=== PATIENT | male | born 1985 | race Caucasian/White ===

== ENCOUNTER 2017-04-09 13:21 | Emergency (ER) | payer BC ==
[~2017-04-09] VITALS: Ht 195.6 cm; Wt 75.4 kg
[~2017-04-09 13:21] MED LIST: SULF1TAB41 PO
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
--- OUTSIDE RECORDS SUMMARY | 2017-04-09 13:27 | XMS REPORT | Continuity of Care Document ---
Author Author [facility] Organization [facility] Address Unknown Phone Unavailable Support Name Relationship Address Phone KYA MARTIN Caregiver [address] [place] [address] Unavailable JOSSELYN GOMEZ DO Caregiver [address] [place] [address] Unavailable CRIS LEDESMA Next Of Kin [place], [place] [phone] Insurance Providers Guarantor Yuriy Bee Address [address] [place] [address] Email DENIED 01-29-17 Payer [facility] Policy Number [id number] Subscriber's Name Yuriy Bee Relationship 18 Self Group Number [id number] Chief Complaint and Reason for Visit Chief Complaint Skin Rash/Abscess Reason for Visit Abscess [id number] Problems Active Problems Medical Problem Onset Date Status Cellulitis of hand, left Unknown Acute Cellulitis of hand, left Unknown Acute Chest pain Unknown Acute Fall Unknown Acute Intercostal muscle pain Unknown Acute Sacral contusion Unknown Acute Seizure Unknown Acute Sinusitis Unknown Acute Past Problems Medical Problem Onset Date Abscess Unknown Cellulitis of groin, right Unknown Seizures, generalized convulsive Unknown Medications Current Home Medications Medication Dose Units Route Directions Days Qty Instructions Start Date Sulfamethoxazole/Trimethoprim (Bactrim 400-80 Mg Tablet) Unknown Strength Tablet Unknown Dose Oral Twice A Day 01/29/17 Past Home Medications Medication Directions Ordered Status No Medications , 08/27/14 Discontinued Social History Social History Problem Response Recorded Date/Time Onset Date Status Hx Substance Use No 01/29/2017 7:50pm Not Applicable Not Applicable Hx Alcohol Use Yes 01/29/2017 7:50pm Not Applicable Not Applicable Tobacco Usage smoke 08/27/2014 10:12pm Not Applicable Not Applicable Query Response Start Date Stop Date Smoking Status Never smoker Hospital Discharge Instructions No hospital discharge instructions. Plan of Care Discharge Date 01/29/17 7:52pm Disposition 01 DISCHARGED HOME, SELF-CARE Condition at Discharge Stable Instructions/Education Provided Abscess (ED) Prescriptions See Medication Section Referrals KYA MARTIN Order Date: 1 Week Address: [address] [facility] [place] [address] Note: Additional Instructions/Education You have a drained/draining abscess in your right groin. We did not need to open it to drain it tonight. Since you still have signs of a skin infection 6 days after taking the previously prescribed bactrim, we will change you to a different antibiotic today. You MUST finish all of the antibiotic to heal your infection and prevent a much worse infection. Follow up with your doctor in the next week to ensure that things are getting better. Care Plan and Goals Physician Care Plan Problem: Draining abscess Goal: Follow up with primary care provider Instructions: Take medications and follow care plan as discussed/written Functional Status No functional status results. Allergies, Adverse Reactions, Alerts No known allergies. Immunizations Query Response on File Recorded Date/Time Hx Influenza Vaccination No 07/07/15 12:10am Hx Pneumococcal Vaccination No 07/07/15 12:10am Hx Influenza Vaccination No 07/07/15 12:10am Vital Signs Acute Vital Signs Vital Response Date/Time Temperature (Fahrenheit) 98.7 deg F (96.8 - 99.1) 01/29/2017 7:52pm Temperature (Calculated Celsius) 37.77970 degrees C (36.0 - 37.3) 01/29/2017 7:52pm Pulse Rate (adult) 75 bpm (60 - 100) 01/29/2017 7:52pm Respiratory Rate 17 breaths/min (10 - 20) 01/29/2017 7:52pm O2 Sat by Pulse Oximetry 96 % (90 - 100) 01/29/2017 7:52pm Blood Pressure 121/72 mm Hg 01/29/2017 7:52pm Height (Feet) 6 feet 01/29/2017 7:15pm Height (Inches) 4.00 inches 01/29/2017 7:15pm Weight (Kilograms) 75.400 kg 01/29/2017 7:15pm Body Mass Index (BMI) 20.0 01/29/2017 7:15pm Results No known relevant diagnostic tests, laboratory data and/or discharge summary. Procedures No known history of procedures. Encounters Encounter Location Arrival/Admit Date Discharge/Depart Date Attending Provider Departed Emergency Room [facility] 01/29/17 6:50pm 01/29/17 7: 52pm JOSSELYN GOMEZ DO Recent Diagnosis
--- OUTSIDE RECORDS SUMMARY | 2017-04-09 13:28 | XMS REPORT ---
Author Author [facility] Address Unknown Phone Unavailable Care Team Providers Care Motor Vehicle Emissions Inspector Name Role Phone Dr. ARNOL DUCKWORTH Primary Care Physician Unavailable Allergies Allergy Description Allergy Type CODEINE Drug allergy (disorder) Procedures Procedure Type Procedure Description Date Physicians No codified procedures found for this patient. Results No Procedures Performed Observation Test Name Observation Test Result Observation Test Units Observation Test Date Observation Test Time No result observations. History of Immunizations Immunization Date no immunization entries Plan of Care Item Text No plan of care items. Procedure Date/Time/Initials Critical? Status No plan of care procedures. Medication List Medication Dose Units Frequency Start Date/Time Status none Problem List Problem Entered Date Resolved Date CONVULSIONS 04/27/2013 04/22/2013
--- OUTSIDE RECORDS SUMMARY | 2017-04-09 13:28 | XMS REPORT ---
Author Author [facility] Address Unknown Phone Unavailable Care Team Providers Care Manager Wind Name Role Phone Dr. ARNOL DUCKWORTH Primary [...] Problem List Problem Entered Date Resolved Date No known problems
--- OUTSIDE RECORDS SUMMARY | 2017-04-09 13:28 | XMS REPORT ---
Author Author [facility]ONE J[facility] Address Unknown Phone Unavailable Care Team Providers Care Printmaker Name Role Phone Dr. JAMAR VELAZQUEZ Primary Care Physician Unavailable Allergies Allergy Description [...] List Medication Dose Units Frequency Start Date/Time Stop Date/Time Status NS 0.9% 1000 ML CONT IV 04/22/13 00:44 Active ~~ NS 0.9% 1000 ML 1000 ML LORAZEPAM(ATIVAN) 2 MG/1ML VIAL 0.5 MG PRN Q30MIN 04/22/13 00:45 05/02/13 00:45 Active SALINE FLUSH 5 ML SYRINGE 3 ML PRN 04/22/13 07:08 Active SERTRALINE(ZOLOFT) 50 MG TAB 50 MG DAILY 04/22/13 10:19 Active Problem List Problem Entered Date Resolved Date CONVULSIONS 04/27/2013 04/22/2013
--- OUTSIDE RECORDS SUMMARY | 2017-04-09 13:28 | XMS REPORT | Continuity of Care Document ---
Author Author [facility] Organization [facility] Address Unknown Phone Unavailable Support Name Relationship Address Phone DARNELL BARRON MD Caregiver [address] [place] [address] [place] [phone] KALEY BEE Next Of Kin [address] [place] [address] Insurance Providers Payer Name Policy Number Subscriber Name Relationship [facility] [id number] Magdaleno Bee 20 Self Problems Medical Problems Problem Onset Date Status Cellulitis of hand, left Unknown Active Cellulitis of hand, left Unknown Active Medications Medication Dose Route Sig Days/Qty Instructions Order Date Discontinued Date Status [no medications] 08/27/14 Active Sulfamethoxazole/Trimethoprim 1 Tab PO TWICE A DAY 14 Qty 08/27/14 Active Social History Social History Problem Response Recorded Date/Time Hx Substance Use No 08/27/2014 10:07pm Hx Alcohol Use No 08/27/2014 10:07pm Tobacco Usage smoke 08/27/2014 10:12pm Hospital Discharge Instructions No hospital discharge instructions. Plan of Care No plan of care. Functional Status Query Response Date Recorded Physical Hygiene Self August 27, 2014 10:07pm Physical Hygiene Self August 27, 2014 10:07pm Allergies, Adverse Reactions, Alerts Allergen Type Severity Reaction Status Last Updated No Known Allergies Active 08/27/14 Immunizations Name Given Type Hx Influenza Vaccination No Historical Hx Pneumococcal Vaccination No Historical Hx Influenza Vaccination No Historical Vital Signs No known vital signs results. Results No known relevant diagnostic tests, laboratory data and/or discharge summary. Procedures No known history of procedures. Encounters Encounter Location Date/Time Departed Emergency Room [facility] 12/05/14 7:40pm Recent Diagnosis
--- OUTSIDE RECORDS SUMMARY | 2017-04-09 13:28 | XMS REPORT | Continuity of Care Document ---
Author Author [facility] Organization [facility] Address Unknown Phone Unavailable Support Name Relationship Address Phone VERONICAKYA NUNES Carmelo Caregiver [address] [place] [address] DANIE SPENCE DO Caregiver [facility] [address] [place] [address] KALEY BEE Next Of Kin [address] [place] [address] Insurance Providers Payer Name Policy Number Subscriber Name Relationship [facility] [id number] Yuriy Bee 20 Self Advance Directives Directive Response Recorded Date/Time Advanced Directives Type None 12/28/14 10:15am Problems Medical Problems Problem Onset Date Status Cellulitis of hand, left Unknown Active Cellulitis of hand, left Unknown Active Seizure Unknown Active Sinusitis Unknown Active Medications Medication Dose Route Sig Days/Qty Instructions Order Date Discontinued Date Status [no medications] 08/27/14 Active Cephalexin 1 Cap PO THREE TIMES A DAY For sinusitis 10 Days 12/28/14 Active Social History Social History Problem Response Recorded Date/Time Hx Substance Use No 12/28/2014 10:15am Hx Alcohol Use No 12/28/2014 10:15am Tobacco Usage smoke 08/27/2014 10:12pm Query Response Start Date Stop Date Smoking Status Current every day smoker Hospital Discharge Instructions No hospital discharge instructions. Plan of Care No plan of care. Functional Status Query Response Date Recorded Physical Hygiene Self December 28, 2014 10:15am Disabilities None December 28, 2014 10:15am Devices Used None December 28, 2014 10:15am Dressing Self December 28, 2014 10:15am Ambulation Self December 28, 2014 10:15am Diet Self December 28, 2014 10:15am Mental Status Alert Oriented December 28, 2014 10:15am Disabilities None December 28, 2014 10:15am Devices Used None December 28, 2014 10:15am Physical Hygiene Self December 28, 2014 10:15am Dressing Self December 28, 2014 10:15am Ambulation Self December 28, 2014 10:15am Diet Self December 28, 2014 10:15am Allergies, Adverse Reactions, Alerts Allergen Type Severity Reaction Status Last Updated No Known Allergies Active 08/27/14 Immunizations Name Given Type Hx Influenza Vaccination No Historical Hx Pneumococcal Vaccination No Historical Hx Influenza Vaccination No Historical Vital Signs Acute Vital Signs Vital Response Date/Time Temperature (Fahrenheit) 98.2 deg F (96.8 - 99.1) Temperature (Calculated Celsius) 36.50411 degrees C (36.0 - 37.3) Pulse Rate (adult) 76 bpm (60 - 100) Respiratory Rate 18 breaths/min (10 - 20) O2 Sat by Pulse Oximetry 97 % (90 - 100) Blood Pressure 97/55 mm Hg Height 6 ft 5 in Weight 167 lb Body Mass Index 19.0 kg/m^2 Results Test Source Date Result Interp. Ref. Range Comments Acetaminophen Level December 28, 2014 10:00am < 10 UG/ML L 10-30 TOXIC <4 HR POST INGESTION: >150 MG/L;TOXIC <12 HR POST INGESTION: >50 MG/L Alanine Aminotransferase (ALT/SGPT) December 28, 2014 10:00am 28 U/L N 21-72 Albumin December 28, 2014 10:00am 4.3 G/DL N 3.5-5.0 Albumin/Globulin Ratio December 28, 2014 10:00am 1.4 RATIO N 1.1-2.2 Alcohol, Quantitative December 28, 2014 10:00am <10 MG/DL - Alkaline Phosphatase December 28, 2014 10:00am 109 U/L N 38-126 Anion Gap December 28, 2014 10:00am 12 MEQ/L N 5-15 Aspartate Amino Transf (AST/SGOT) December 28, 2014 10:00am 28 U/L N 17- 59 BUN/Creatinine Ratio December 28, 2014 10:00am 17 RATIO N 6-26 Basophils # (Auto) December 28, 2014 10:00am 0.0 T/MM3 N 0-0.2 Basophils (%) (Auto) December 28, 2014 10:00am 0.5 % N 0-2 Blood Urea Nitrogen December 28, 2014 10:00am 15.0 MG/DL N 9-20 Calcium Level December 28, 2014 10:00am 9.8 MG/DL N 8.4-10.2 Calculated Osmolality December 28, 2014 10:00am 278 MOSM/KG N 261-280 Carbon Dioxide Level December 28, 2014 10:00am 27 MEQ/L N 22-30 Chemistry Specimen Hemolysis December 28, 2014 10:00am < 15 0-25 0-25 : No Hemolysis.26-70: Slight Hemolysis - can falsely elevate K and Urine Protein. 71-285: Moderate Hemolysis - can falsely elevate K, Troponin I, CA 19-9, PTH, CSF GLucose, and Urine Protein, and can falsely decrease Phenytoin. 286-999: Gross Hemolysis - can falsely elevate K, Troponin I, CA 19-9, PTH, CSF Glucose, and Urine Protine, and can falsely decrease Phenytoin. Recommend specimen recollection. Chloride Level December 28, 2014 10:00am 105 MEQ/L N 98-107 Creatinine December 28, 2014 10:00am 0.9 MG/DL N 0.8-1.5 Eosinophils # (Auto) December 28, 2014 10:00am 0.2 T/MM3 N 0-0.5 Eosinophils (%) (Auto) December 28, 2014 10:00am 2.1 % N 0-4 Globulin December 28, 2014 10:00am 3.1 G/DL N 2.4-3.6 Glomerular Filtration Rate Calc December 28, 2014 10:00am 101 - Glucometer December 28, 2014 12:33pm 158 mg/dL H 75-110 Glucose Level December 28, 2014 10:00am 92 MG/DL N 75-110 Hematocrit December 28, 2014 10:00am 40.1 % L 41-53 Hemoglobin December 28, 2014 10:00am 13.6 GM/DL N 13.5-17.5 Icterus Index December 28, 2014 10:00am < 2 0-7 Immature Granulocyte # (Auto) December 28, 2014 10:00am 0.01 T/MM3 N 0.00-0.03 Immature Granulocyte % (Auto) December 28, 2014 10:00am 0.1 % N 0.0-0.5 Lab Scanned Report December 28, 2014 11:12am REFERENCE LAB - Lymphocytes # (Auto) December 28, 2014 10:00am 2.5 T/MM3 N 1-4.8 Lymphocytes (%) (Auto) December 28, 2014 10:00am 31.6 % N 23-45 Mean Corpuscular Hemoglobin December 28, 2014 10:00am 30.5 UUG N 26-34 Mean Corpuscular Hemoglobin Concent December 28, 2014 10:00am 33.9 GM/DL N 31-37 Mean Corpuscular Volume December 28, 2014 10:00am 89.9 UM3 N 80-100 Mean Platelet Volume December 28, 2014 10:00am 10.2 UM3 N 9.4-12.4 Monocytes # (Auto) December 28, 2014 10:00am 0.5 T/MM3 N 0-0.8 Monocytes (%) (Auto) December 28, 2014 10:00am 6.0 % N 0-9.0 Neutrophils # (Auto) December 28, 2014 10:00am 4.8 T/MM3 N 1.8-7.7 Neutrophils (%) (Auto) December 28, 2014 10:00am 59.7 % N 33-66 Platelet Count December 28, 2014 10:00am 293 T/MM3 N 130-400 Potassium Level December 28, 2014 10:00am 3.8 MEQ/L N 3.6-5 Prolactin December 28, 2014 10:00am 9.9 NG/ML - Normal Female (Non- ): 3.0-18.6 ng/ml;Males: 3.7-17.9 ng/ml RDW Standard Deviation December 28, 2014 10:00am 44.5 FL N 36.9-50.2 Red Blood Count December 28, 2014 10:00am 4.46 M/MM3 L 4.50-5.90 Salicylates Level December 28, 2014 10:00am < 1.0 MG/DL L 2-20 Sodium Level December 28, 2014 10:00am 144 MEQ/L N 134-144 Total Bilirubin December 28, 2014 10:00am 1.00 MG/DL N 0.20-1.30 Total Protein December 28, 2014 10:00am 7.4 G/DL N 6.3-8.2 Troponin I December 28, 2014 10:00am < 0.012 ng/ml 0-0.12 Turbidity December 28, 2014 10:00am < 20 0-20 Urinalysis Comment December 28, 2014 10:31am Microscopic not ind. - Has specimen been collected/obtained? Y Urine Bilirubin December 28, 2014 10:31am Negative - Has specimen been collected/obtained? Y Urine Blood December 28, 2014 10:31am Negative - Has specimen been collected/obtained? Y Urine Collection Type December 28, 2014 10:31am Cleancatch-midstream - Has specimen been collected/obtained? Y Urine Color December 28, 2014 10:31am Yellow - Has specimen been collected/obtained? Y Urine Glucose (UA) December 28, 2014 10:31am Negative - Has specimen been collected/obtained? Y Urine Ketones December 28, 2014 10:31am Negative - Has specimen been collected/obtained? Y Urine Leukocyte Esterase December 28, 2014 10:31am Negative - Has specimen been collected/obtained? Y Urine Nitrite December 28, 2014 10:31am Negative - Has specimen been collected/obtained? Y Urine Protein December 28, 2014 10:31am Negative - Has specimen been collected/obtained? Y Urine Specific [place] December 28, 2014 10:31am 1.025 - Has specimen been collected/obtained? Y Urine Turbidity December 28, 2014 10:31am Clear - Has specimen been collected/obtained? Y Urine Urobilinogen December 28, 2014 10:31am 0.2 EU/DL - Has specimen been collected/obtained? Y Urine pH December 28, 2014 10:31am 6.0 - Has specimen been collected/ obtained? Y White Blood Count December 28, 2014 10:00am 8.0 T/MM3 N 4.5-11.0 Name: YURIY BEE Unit #: [id number] : 1985 Sex: M Loc / Svc: ED DOS: 12/28/14 Signed Report #: [id number] DIAGNOSTIC IMAGING REPORT TYPE OF EXAM: CT HEAD W/O CONTRAST Dictated By: NICHOLAS URENA MD Indication: ITS.REASON: Seizure CT HEAD W/O CONTRAST: Comparison: None Technique: Axial CT images through the head were performed without contrast. FINDINGS: The ventricles are of normal size, shape, and contour for the patient's age. The brainstem, cerebellum, and cerebral hemispheres have a normal morphology and CT attenuation. There is no evidence of midline displacement. No hemorrhage, signs of acute territorial stroke, mass effect, mass lesions, or edema is evident. The visualized portions of the skull base, midface, and calvarium demonstrate no abnormality. Mucosal thickening in the maxillary sinuses. The left frontal sinus is completely opacified with an acute air-fluid level. Right sphenoid sinus is also completely opacified.. The tympanic and mastoid cavities appear normal. IMPRESSION: No acute intracranial abnormality or hemorrhage. Severe sinusitis. Procedures No known history of procedures. Encounters Encounter Location Date/Time Departed Emergency Room [facility] 12/28/14 10:13am Departed Emergency Room [facility] 12/05/14 7:40pm Recent Diagnosis
--- OUTSIDE RECORDS SUMMARY | 2017-04-09 13:28 | XMS REPORT | Continuity of Care Document ---
Author Author [facility] Organization [facility] Address Unknown Phone Unavailable Support Name Relationship Address Phone KYA MARTIN Caregiver [address] [place] [address] MIHAELA CHILD MD Caregiver [address] [place] [address] [phone] KALEY BEE Next Of Kin [address] [place] [address] Insurance Providers Payer Name Policy Number Subscriber Name Relationship [facility] [id number] Yuriy Bee 20 Self Problems No known problems or medical conditions. Medications No known medications. Social History No social history. Hospital Discharge Instructions No hospital discharge instructions. Plan of Care No plan of care. Functional Status No functional status results. Allergies, Adverse Reactions, Alerts No known allergies. Immunizations No immunization records. Vital Signs No known vital signs results. Results No known relevant diagnostic tests, laboratory data and/or discharge summary. Procedures No known history of procedures. Encounters Encounter Location Date/Time Departed Emergency Room [facility] 07/15/14 2:54am Recent Diagnosis
--- OUTSIDE RECORDS SUMMARY | 2017-04-09 13:28 | XMS REPORT | Continuity of Care Document ---
Author Author [facility] Organization [facility] Address Unknown Phone Unavailable Support Name Relationship Address Phone CARON GOMES MD Caregiver [address] [place] [address] [place] [phone] KALEY BEE Next Of Kin [address] [place] [address] Insurance Providers Payer Name Policy Number Subscriber Name Relationship [facility] [id number] Yuriy Bee 20 Self Advance Directives Directive Response Recorded Date/Time Advanced Directives Type None 08/27/14 9:45pm Problems Medical Problems Problem Onset Date Status Cellulitis of hand, left Unknown Active Cellulitis of hand, left Unknown Active Medications Medication Dose Route Sig Days/Qty Instructions Order Date Discontinued Date Status [no medications] 08/27/14 Active Sulfamethoxazole/Trimethoprim 1 Tab PO TWICE A DAY 14 Qty 08/27/14 Active Social History Social History Problem Response Recorded Date/Time Smoking Status Current every day smoker 08/27/2014 10:07pm When did patient START smoking? started as a teenager 08/27/2014 10:07pm Chewing Tobacco Status No 08/27/2014 10:07pm Hx Substance Use No 08/27/2014 10:07pm Hx Alcohol Use No 08/27/2014 10:07pm Hospital Discharge Instructions No hospital discharge instructions. Plan of Care No plan of care. Functional Status Query Response Date Recorded Physical Hygiene Self August 27, 2014 10:07pm Disabilities None August 27, 2014 10:07pm Devices Used None August 27, 2014 10:07pm Dressing Self August 27, 2014 10:07pm Ambulation Self August 27, 2014 10:07pm Diet Self August 27, 2014 10:07pm Mental Status Alert August 27, 2014 10:12pm Disabilities None August 27, 2014 10:07pm Devices Used None August 27, 2014 10:07pm Physical Hygiene Self August 27, 2014 10:07pm Dressing Self August 27, 2014 10:07pm Ambulation Self August 27, 2014 10:07pm Diet Self August 27, 2014 10:07pm Allergies, Adverse Reactions, Alerts Allergen Type Severity Reaction Status Last Updated No Known Allergies Active 08/27/14 Immunizations Name Given Type Hx Influenza Vaccination No Historical Hx Pneumococcal Vaccination No Historical Hx Influenza Vaccination No Historical Vital Signs Acute Vital Signs Vital Response Date/Time Temperature (Fahrenheit) 98.2 deg F (96.8 - 99.1) Temperature (Calculated Celsius) 36.26389 degrees C (36.0 - 37.3) Pulse Rate (adult) 62 bpm (60 - 100) Respiratory Rate 16 breaths/min (10 - 20) O2 Sat by Pulse Oximetry 100 % (90 - 100) Blood Pressure 120/62 mm Hg Height 6 ft 6 in Weight 165 lb Body Mass Index 19.0 kg/m^2 Results Name: YURIY BEE Unit #: [id number] : 1985 Sex: M Loc / Svc: ED DOS: 07/15/14 Signed Report #: [id number] DIAGNOSTIC IMAGING REPORT TYPE OF EXAM: CHEST, PA & LATERAL Dictated By: NICHOLAS OROPEZA MD INDICATION: ITS.REASON: COUGH,SOA,FEVER x7DAYS CHEST 2-VIEWS UPRIGHT (PA & LAT): COMPARISON: None FINDINGS: The lungs are clear without evidence of focal abnormal airspace opacity. There is no pleural effusion or pneumothorax. The heart size, mediastinal contours and pulmonary vascularity are within normal limits. There is no significant skeletal abnormality. IMPRESSION: No acute cardiopulmonary disease. . Procedures No known history of procedures. Encounters Encounter Location Date/Time Registered Emergency Room [facility] 08/27/14 9:42pm Departed Emergency Room [facility] 07/15/14 2:54am Recent Diagnosis
[2017-04-09 13:45] VITALS: TEMP 98.2; Ht 195.6 cm; Wt 75.4 kg
--- NOTE | 2017-04-09 13:55 | NUR ---
DR FISHER IN
--- NOTE | 2017-04-09 13:59 | ERPDOC ---
Departure Disposition Decision Date: April 09, 2017 Disposition Decision Time: 14:00 Disposition: 01 DISCHARGED HOME, SELF-CARE Impression Impression Impression: Primary Impression: Abscess Severity: Mild Condition: Improved Seen By: Physician only Referrals: KYA MARTIN (Family) 2 Days Patient Instructions: Abscess (ED) Problems/Meds/Labs Reviewed?: Yes Medications reviewed and manag: Yes Follow up care ordered?: Yes Mental Status: Alert, Oriented Scripts Clindamycin HCl (Clindamycin HCl) 150 Mg Capsule 2 CAP PO Q6HR for 10 Days, #80 CAP 0 Refills TAKE WITH A FULL GLASS OF WATER TO AVOID ESOPHAGEAL IRRITATION. Prov: RANGEL FISHER DO 04/09/17 Hydrocodone/Acetaminophen ([place] 5-325 Tablet) 5-325 Tablet 1 TAB PO Q4HR Y for PAIN for 2 Days, #12 TAB 0 Refills Prov: NATALIARANGEL Brock DO 04/09/17 HPI - General Medical General Chief Complaint: Skin Rash/Abscess Stated Complaint: CYST ON ABD Time Seen by Provider: 13:49 Source: patient Exam Limitations: no limitations HPI - General Medical Initial Comments 32-year-old male presents to the emergency department with a chief complaint of a skin abscess on his abdomen. Patient noted onset of symptoms approximately 3 days ago while at home. Symptoms have gradually progressed in nature since onset. 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 Patient notes a moderate dull discomfort locally at the site of abscess without radiation. He notes that the pain increases with direct palpation of the affected area. Patient denies any other complaints or associated symptoms. Patient does note that he has an ALLERGY to Bactrim in the past. Occurred At: home Onset: Gradual Allergies: Coded Allergies: sulfamethoxazole (Verified Allergy, Unknown, 04/09/17) trimethoprim (Verified Allergy, Unknown, 04/09/17) Past History Patient Medical History Problem List Updates: MRSA Past Medical History Neurological: seizures Surgical History General: hernia Joint: knee, shoulder Family History Family History: Negative Family PMH: FOUND: other Vaccines Hx Influenza Vaccination: No Hx Pneumococcal Vaccination: No Social History Smoking Status: Current every day smoker # of Packs/Tins per Day: 1 Substance Use Type: does not use Alcohol Intake: none Sexuality: female partner Review of Systems Constitutional Constitutional: DENIES: chills, fever Eyes General: DENIES: erythema, exudate Lids/Accessories: DENIES: erythema, swelling Vision: DENIES: acuity, blurring ENMT Ears: DENIES: drainage, erythema Hearing: DENIES: hearing loss Balance: DENIES: ataxia, falling to one side Sinuses: DENIES: congestion, pain Nose: DENIES: nosebleeds, pain Mouth/Throat: DENIES: painful swallowing, sore throat Teeth: DENIES: pain Jaw: DENIES: pain Cardiovascular Cardiac: DENIES: chest pain, dyspnea on exertion Rhythm/Rate: DENIES: irregular beat, palpitations Vascular: DENIES: pedal edema, unilateral swelling Pulmonary Respiratory: DENIES: cough, dyspnea, pleuritic chest pain, sputum GI Upper Abdomen: DENIES: nausea, pain, vomiting Lower Abdomen: DENIES: diarrhea, pain General: DENIES: dysuria, frequency, urgency Musculoskeletal General: DENIES: joint pain, tenderness Integumentary Skin: DENIES: itching, rash Neurological General: DENIES: change in strength, headache, numbness, weakness Psychiatric Psychiatric: DENIES: emotional instability, suicidal ideation/attempt Endocrine Endocrine: DENIES: polydipsia, polyphagia Hematologic/Lymphatic Hematologic/Lymphatic: DENIES: frequent nosebleeds, lymphadenopathy Allergic/Immunological Allergic/Immunoligical: DENIES: allergic reactions, hives Physical Exam General General Nourishment: well nourished, well developed, appears stated age, no acute distress, adult General Body Habitus: well groomed Vitals and Pain First Documented Vital Signs Date Time Temp Pulse Resp B/P Pulse Ox O2 Delivery O2 Flow Rate FiO2 04/09/17 13:45 98.2 70 16 104/60 95 Room Air Weight: Kilograms: 75.400 Height (feet): 6 Height (inches): 5.00 Triage Pain Scale: RN VS reviewed by Provider: Yes Normal Exams: Head: Normocephalic w/o trauma Eyes: Pupils are PERRLA w/ EOMI, No scleral icterus, irritation, or foreign bodies noted ENMT: No facial trauma, nasal exudates, pharyngeal erythema, or exudates are noted Dental: No fractured, loose, or missing teeth noted Neck: Full range of motion, without adenopathy, JVD, bruits or thyromegaly Chest/Resp: Clear all pan, with good airflow, and symmetry bilaterally CV: Regular rate and rhythm, without murmur or gallop, Pulses 2+ all extremities, capillary refill, <2 seconds all ext., no pedal edema noted Abdomen: Bowel sounds positive, soft, non-tender, non-distended, no hepatosplenomegaly, masses or bruits noted Lymphatic: No lymphadenopathy, or lymphedema noted Musculoskeletal: No tenderness, or deformity noted, good range of motion, all extremities Integumentary: No rashes, hives, or bruising noted, hair and nails, without abnormality Neurologic: Patient is alert, and oriented, cranial nerves, motor/sensory/ cerebellar, exams w/o gross deficits, to observation Psychiatric: Patient exhibits, appropriate attention, emotion and affect Integumentary (brief) Comments 1 cm early abscess with mild induration but no pointing or fluctuance noted. No surrounding cellulitis or lymphangitis. Abscess was unroofed in the emergency department without expression of purulent material. Differential Diagnoses Considering: Other (abscess/cellulitis/insect bite / folliculitis) Progress Results/Orders Orders Procedure Category Date Status Time Hydrocodone/Acetaminophen PHA 04/09/17 Complete ([place] 5/325) 14:00 Clindamycin (Cleocin) PHA 04/09/17 Complete 14:00 Medications Current ED Medications Acetaminophen/ Hydrocodone Bitart ([place] 5/325) 1 tab O ONCE PO Last administered on 04/09/17 14:11; Start 04/09/17 at 14:00; Stop 04/09/17 at 14:01 ; Status DC Clindamycin HCl (Cleocin) 300 mg O ONCE PO Last administered on 04/09/17 14: 11; Start 04/09/17 at 14:00; Stop 04/09/17 at 14:01; Status DC Progress Progress Abscess was unroofed in the emergency department without expression of purulent material. Patient is started on clindamycin 300 mg by mouth every 6 hours 10 days. Initial dose was given in the emergency Department. Patient is given analgesic pain medication with improvement of symptoms. Patient is discharged home in improved condition. Patient is to follow up as instructed. Patient is to return to the emergency department if his condition worsens or changes in any manner. Patient is agreement with the current plan of management. He is discharged home in improved condition. Prescriptions for clindamycin and [place] are provided. RANGEL FISHER DO April 09, 2017 13:59
[2017-04-09] MEDS ORDERED: HYDROCODONE/APAP 5 mg/325 mg TABLET PO ONE (14:00)
[2017-04-09] MEDS ORDERED: CLINDAMYCIN 300 MG CAPSULE PO ONE (14:00)
[2017-04-09] MEDS ORDERED: NO ROUTINE MEDS (14:01)
[2017-04-09] MEDS ORDERED: CLIN-89 PO (14:03)
[2017-04-09] MEDS ORDERED: HYDR-4246 PO (14:03)
[2017-04-09 14:14] VITALS: BP 107/55; PULSE 66; RESP 16; O2SAT 97
--- OUTSIDE RECORDS SUMMARY | 2017-04-09 14:21 | XMS REPORT | Continuity of Care Document ---
Author Author [facility] Organization [facility] Address Unknown Phone Unavailable Support Name Relationship Address Phone KYA MARTIN Caregiver [address] [place] [address] MIHAELA CHILD MD Caregiver [address] [place] [address] [place] [phone] KALEY BEE Next Of Kin [address] [place] [address] Insurance Providers Payer Name Policy Number Subscriber Name Relationship [facility] [id number] Yuriy Bee 20 Self Problems No known [...] Encounters Encounter Location Date/Time Departed Emergency Room [facility] 07/15/14 2:54am Recent Diagnosis
--- OUTSIDE RECORDS SUMMARY | 2017-04-09 14:21 | XMS REPORT | Continuity of Care Document ---
Author Author [facility] Organization [facility] Address Unknown Phone Unavailable Support Name Relationship Address Phone KYA MARTIN Caregiver [address] [place] [address] Unavailable RANGEL FISHER DO Caregiver [address] [place] [address] Unavailable CRIS LEDESMA Next Of Kin [place], [place] [phone] Insurance Providers Guarantor Yuriy Bee Address [address] [place] [address] Email DENIED 17 Payer [facility] Policy Number [id number] Subscriber's Name Anibal Beerayshawn Hinds Relationship 18 Self Group Number [id number] Advance Directives Directive Response Recorded Date/Time Advanced Directives Type None 04/09/17 1:45pm Chief Complaint and Reason for Visit Chief Complaint Skin Rash/Abscess Reason for Visit Abscess Problems Active Problems Medical Problem Onset Date Status Cellulitis of hand, left Unknown Acute Cellulitis of hand, left Unknown Acute Chest pain Unknown Acute Fall Unknown Acute Intercostal muscle pain Unknown Acute Sacral contusion Unknown Acute Seizure Unknown Acute Sinusitis Unknown Acute Past Problems Medical Problem Onset Date Abscess Unknown Abscess Unknown Cellulitis of groin, right Unknown Seizures, generalized convulsive Unknown Medications Current Home Medications Medication Dose Units Route Directions Days Qty Instructions Start Date Clindamycin Hcl 150 Mg Capsule 2 Cap Oral Q6h/0300,0900,1500,2100 10 Days 80 Capsule TAKE WITH A FULL GLASS OF WATER TO AVOID ESOPHAGEAL IRRITATION. 04/09/17 Hydrocodone/Acetaminophen ([place] 5-325 Tablet) 5-325 Tablet 1 Tab Oral Every 4 Hours as needed for Pain 2 Days 12 Tablet 04/09/17 No Routine Meds 04/09/17 Past Home Medications Medication Directions Ordered Status No Medications , 08/27/14 Discontinued Social History Social History Problem Response Recorded Date/Time Onset Date Status Hx Substance Use No 04/09/2017 1:50pm Not Applicable Not Applicable Hx Alcohol Use Y OCCASIONAL 04/09/2017 1:50pm Not Applicable Not Applicable Tobacco Usage smoke 08/27/2014 10:12pm Not Applicable Not Applicable Query Response Start Date Stop Date Smoking Status Current every day smoker Hospital Discharge Instructions No hospital discharge instructions. Plan of Care Discharge Date 04/09/17 2:13pm Disposition 01 DISCHARGED HOME, SELF-CARE Condition at Discharge Improved Instructions/Education Provided Abscess (ED) Prescriptions See Medication Section Referrals VERONICAKYA M Order Date: 2 Days Address: [address] [place] [address] Note: Care Plan and Goals Physician Care Plan Problem: Abscess Goal: Follow up with primary care provider Instructions: Take medications and follow care plan as discussed/written Functional Status No functional status results. Allergies, Adverse Reactions, Alerts Allergen Type Severity Reaction Status Last Updated Sulfamethoxazole Allergy Unknown Active 04/09/17 Trimethoprim Allergy Unknown Active 04/09/17 Immunizations Query Response on File Recorded Date/Time Hx Influenza Vaccination No 07/07/15 12:10am Hx Pneumococcal Vaccination No 07/07/15 12:10am Hx Influenza Vaccination No 07/07/15 12:10am Tetanus Diptheria Vaccine History UTD 04/09/17 1:50pm Vital Signs Acute Vital Signs Vital Response Date/Time Temperature (Fahrenheit) 98.2 deg F (96.8 - 99.1) 04/09/2017 1:45pm Temperature (Calculated Celsius) 36.03030 degrees C (36.0 - 37.3) 04/09/2017 1:45pm Pulse Rate (adult) 66 bpm (60 - 100) 04/09/2017 2:14pm Respiratory Rate 16 breaths/min (10 - 20) 04/09/2017 2:14pm O2 Sat by Pulse Oximetry 97 % (90 - 100) 04/09/2017 2:14pm Blood Pressure 107/55 mm Hg 04/09/2017 2:14pm Height (Feet) 6 feet 04/09/2017 1:45pm Height (Inches) 5.00 inches 04/09/2017 1:45pm Weight (Kilograms) 75.400 kg 04/09/2017 1:45pm Body Mass Index (BMI) 19.0 04/09/2017 1:45pm Results No known relevant diagnostic tests, laboratory data and/or discharge summary. Procedures Procedure Status Date Provider(s) Emergency dept visit Completed 01/29/17 Encounters Encounter Location Arrival/Admit Date Discharge/Depart Date Attending Provider Departed Emergency Room [facility] 04/09/17 1:21pm 04/09/17 2: 13pm RANGEL FISHER DO Departed Emergency Room [facility] 01/29/17 6:50pm 01/29/17 7: 52pm JOSSELYN GOMEZ DO Recent Diagnosis
--- OUTSIDE RECORDS SUMMARY | 2017-04-09 14:21 | XMS REPORT ---
Author Author [facility] Address Unknown Phone Unavailable Care Team Providers Care Tablet Coater Name Role Phone Dr. ARNOL DUCKWORTH Primary [...]
--- OUTSIDE RECORDS SUMMARY | 2017-04-09 14:21 | XMS REPORT | Continuity of Care Document ---
Author Author [facility] Organization [facility] Address Unknown Phone Unavailable Support Name Relationship Address Phone CARON GOMES MD Caregiver [address] [place] [address] [place] [phone] KALEY BEE Next Of Kin [address] [place] [address] Insurance Providers Payer Name Policy Number Subscriber Name Relationship [facility] [id number] Yuriy Bee 20 Self Advance Directives Directive [...] F (96.8 - 99.1) Temperature (Calculated Celsius) 36.46113 degrees C (36.0 - 37.3) Pulse Rate (adult) 62 bpm (60 - 100) Respiratory Rate 16 breaths/min (10 - 20) O2 Sat by Pulse Oximetry 100 % (90 - 100) Blood Pressure 120/62 mm Hg Height 6 ft 6 in Weight 165 lb Body Mass Index 19.0 kg/m^2 Results Name: YURIY BEE Unit #: [id number] : 1985 Sex: M Loc / Svc: ED DOS: 07/15/14 Signed Report #: [id number] DIAGNOSTIC IMAGING REPORT TYPE OF EXAM: CHEST, [...] Encounters Encounter Location Date/Time Registered Emergency Room [facility] 08/27/14 9:42pm Departed Emergency Room [facility] 07/15/14 2:54am Recent Diagnosis
--- OUTSIDE RECORDS SUMMARY | 2017-04-09 14:21 | XMS REPORT ---
Author Author JONE JOSÉ [facility] Address Unknown Phone Unavailable Care Team Providers Care Echo Vasc Tech Name Role Phone Dr. JAMAR VELAZQUEZ Primary [...]
--- OUTSIDE RECORDS SUMMARY | 2017-04-09 14:21 | XMS REPORT | Continuity of Care Document ---
Author Author [facility] Organization [facility] Address Unknown Phone Unavailable Support Name Relationship Address Phone VERONICAKYA NUNES Carmelo Caregiver [address] [place] [address] DANIE SPENCE DO Caregiver [facility] [address] [place] [address] KALEY BEE Next Of Kin [address] [place] [address] Insurance Providers Payer Name Policy Number Subscriber Name Relationship [facility] [id number] Yuriy Bee 20 Self Advance Directives Directive [...] F (96.8 - 99.1) Temperature (Calculated Celsius) 36.63718 degrees C (36.0 - 37.3) Pulse Rate [...] Has specimen been collected/obtained? Y Urine Specific [place] December 28, 2014 10:31am 1.025 - Has [...] N 4.5-11.0 Name: YURIY BEE Unit #: [id number] : 1985 Sex: M Loc / Svc: ED DOS: 12/28/14 Signed Report #: [id number] DIAGNOSTIC IMAGING REPORT TYPE OF EXAM: CT [...] Encounters Encounter Location Date/Time Departed Emergency Room [facility] 12/28/14 10:13am Departed Emergency Room [facility] 12/05/14 7:40pm Recent Diagnosis
--- OUTSIDE RECORDS SUMMARY | 2017-04-09 14:21 | XMS REPORT | Continuity of Care Document ---
Author Author [facility] Organization [facility] Address Unknown Phone Unavailable Support Name Relationship Address Phone DARNELL BARRON MD Caregiver [address] [place] [address] [place] [phone] KALEY BEE Next Of Kin [address] [place] [address] Insurance Providers Payer Name Policy Number Subscriber Name Relationship [facility] [id number] Magdaleno Bee 20 Self Problems Medical Problems [...] Encounters Encounter Location Date/Time Departed Emergency Room [facility] 12/05/14 7:40pm Recent Diagnosis
--- OUTSIDE RECORDS SUMMARY | 2017-04-09 14:21 | XMS REPORT ---
Author Author [facility] Address Unknown Phone Unavailable Care Team Providers Care Music Library Assistant Name Role Phone Dr. ARNOL DUCKWORTH Primary [...]
--- OUTSIDE RECORDS SUMMARY | 2017-04-09 14:21 | XMS REPORT | Continuity of Care Document ---
Author Author [facility] Organization [facility] Address Unknown Phone Unavailable Allergies Active Description [...] Status Pt. Type Provider Facility Loc./Unit Complaint [id number] 12/31/2013 20:49:00 2013 11:56:00 DIS Outpatient Koffi Hernadez Jr, MD [facility] F8SE [id number] 09/04/2012 13:59:00 2011 18:55:00 DIS Emergency Sukhwinder Sharma MD [facility] FERM
== END 2017-04-09 14:13 | disposition home or self-care (01) ==
LOC: ED 13:21
DX: L02.211 Cutaneous abscess of abdominal wall (principal); Z86.14 Personal history of Methicillin resistant Staphylococcus aureus infection

== ENCOUNTER 2017-04-22 01:30 | Emergency (ER) | payer BC ==
[~2017-04-22] VITALS: Ht 193 cm; Wt 71.8 kg
[2017-04-22 01:30] VITALS: Ht 193 cm; Wt 71.8 kg
[~2017-04-22 01:30] MED LIST changes: +CLIN-89 PO; +HYDR-4246 PO; +NO ROUTINE MEDS; -SULF1TAB41 PO
--- OUTSIDE RECORDS SUMMARY | 2017-04-22 01:37 | XMS REPORT ---
Author Author [facility] Address Unknown Phone Unavailable Care Team Providers Care House Steward/Stewardess Name Role Phone Dr. ARNOL DUCKWORTH Primary [...]
--- OUTSIDE RECORDS SUMMARY | 2017-04-22 01:37 | XMS REPORT | Continuity of Care Document ---
Author Author [facility] Organization [facility] Address Unknown Phone Unavailable Support Name Relationship Address Phone DARNELL BARRON MD Caregiver [address] [place] [address] [place] [phone] KALEY BEE Next Of Kin [address] [place] [address] Insurance Providers Payer Name Policy Number Subscriber Name Relationship [facility] [id number] Magdaleno Bee 20 Self Problems Medical Problems [...] Encounters Encounter Location Date/Time Departed Emergency Room [facility] 12/05/14 7:40pm Recent Diagnosis
--- OUTSIDE RECORDS SUMMARY | 2017-04-22 01:37 | XMS REPORT ---
Author Author [facility] Address Unknown Phone Unavailable Care Team Providers Care Welding Machine Tender Name Role Phone Dr. ARNOL DUCKWORTH Primary [...]
--- OUTSIDE RECORDS SUMMARY | 2017-04-22 01:37 | XMS REPORT | Continuity of Care Document ---
Author Author [facility] Organization [facility] Address Unknown Phone Unavailable Support Name Relationship Address Phone CARON GOMES MD Caregiver [address] [place] [address] [place] [phone] KALEY BEE Next Of Kin [address] [place] [address] Insurance Providers Payer Name Policy Number Subscriber Name Relationship [facility] [id number] Yuriy Bee 20 Self Advance Directives Directive [...] F (96.8 - 99.1) Temperature (Calculated Celsius) 36.79498 degrees C (36.0 - 37.3) Pulse Rate (adult) 62 bpm (60 - 100) Respiratory Rate 16 breaths/min (10 - 20) O2 Sat by Pulse Oximetry 100 % (90 - 100) Blood Pressure 120/62 mm Hg Height 6 ft 6 in Weight 165 lb Body Mass Index 19.0 kg/m^2 Results Name: YURIY BEE Unit #: [id number] : 1985 Sex: M Loc / Svc: ED DOS: 07/15/14 Signed Report #: [id number] DIAGNOSTIC IMAGING REPORT TYPE OF EXAM: CHEST, [...] Encounters Encounter Location Date/Time Registered Emergency Room [facility] 08/27/14 9:42pm Departed Emergency Room [facility] 07/15/14 2:54am Recent Diagnosis
--- OUTSIDE RECORDS SUMMARY | 2017-04-22 01:37 | XMS REPORT | Continuity of Care Document ---
Author Author [facility] Organization [facility] Address Unknown Phone Unavailable Allergies Active Description [...] Status Pt. Type Provider Facility Loc./Unit Complaint [id number] 12/31/2013 20:49:00 2013 11:56:00 DIS Outpatient Koffi Hernadez Jr, MD [facility] F8SE [id number] 09/04/2012 13:59:00 2011 18:55:00 DIS Emergency Sukhwinder Sharma MD [facility] FERM
--- OUTSIDE RECORDS SUMMARY | 2017-04-22 01:37 | XMS REPORT | Continuity of Care Document ---
Author Author [facility] Organization [facility] Address Unknown Phone Unavailable Support Name Relationship Address Phone KYA MARTIN Caregiver [address] [place] [address] MIHAELA CHILD MD Caregiver [address] [place] [address] [place] [phone] KALEY BEE Next Of Kin [address] [place] [address] Insurance Providers Payer Name Policy Number Subscriber Name Relationship [facility] [id number] Yuriy Bee 20 Self Problems No known [...] Encounters Encounter Location Date/Time Departed Emergency Room [facility] 07/15/14 2:54am Recent Diagnosis
--- OUTSIDE RECORDS SUMMARY | 2017-04-22 01:37 | XMS REPORT | Continuity of Care Document ---
Author Author [facility] Organization [facility] Address Unknown Phone Unavailable Support Name Relationship Address Phone VERONICAKYA NUNES Carmelo Caregiver [address] [place] [address] DANIE SPENCE DO Caregiver [facility] [address] [address] KALEY BEE Next Of Kin [address] [place] [address] Insurance Providers Payer Name Policy Number Subscriber Name Relationship [facility] [id number] Yuriy Bee 20 Self Advance Directives Directive [...] F (96.8 - 99.1) Temperature (Calculated Celsius) 36.77823 degrees C (36.0 - 37.3) Pulse Rate [...] Has specimen been collected/obtained? Y Urine Specific [place] December 28, 2014 10:31am 1.025 - Has [...] N 4.5-11.0 Name: YURIY BEE Unit #: [id number] : 1985 Sex: M Loc / Svc: ED DOS: 12/28/14 Signed Report #: [id number] DIAGNOSTIC IMAGING REPORT TYPE OF EXAM: CT [...] Encounters Encounter Location Date/Time Departed Emergency Room [facility] 12/28/14 10:13am Departed Emergency Room [facility] 12/05/14 7:40pm Recent Diagnosis
--- OUTSIDE RECORDS SUMMARY | 2017-04-22 01:37 | XMS REPORT ---
Author Author JONE JOSÉ [facility] Address Unknown Phone Unavailable Care Team Providers Care Retreader Name Role Phone Dr. JAMAR VELAZQUEZ Primary [...]
--- OUTSIDE RECORDS SUMMARY | 2017-04-22 01:40 | XMS REPORT | Continuity of Care Document ---
Author Author [facility] Organization [facility] Address Unknown Phone Unavailable Support Name Relationship Address Phone KYA MARTIN Caregiver [address] [place] [address] MIHAELA CHILD MD Caregiver [address] [place] [address] [place] [phone] KALEY BEE Next Of Kin [address] [place] [address] Insurance Providers Payer Name Policy Number Subscriber Name Relationship [facility] [id number] Yuriy Bee 20 Self Problems No known [...] Encounters Encounter Location Date/Time Departed Emergency Room [facility] 07/15/14 2:54am Recent Diagnosis
--- OUTSIDE RECORDS SUMMARY | 2017-04-22 01:40 | XMS REPORT | Continuity of Care Document ---
Author Author [facility] Organization [facility] Address Unknown Phone Unavailable Support Name Relationship Address Phone CARON GOMES MD Caregiver [address] [place] [address] [place] [phone] KALEY BEE Next Of Kin [address] [place] [address] Insurance Providers Payer Name Policy Number Subscriber Name Relationship [facility] [id number] Yuriy Bee 20 Self Advance Directives Directive [...] F (96.8 - 99.1) Temperature (Calculated Celsius) 36.75117 degrees C (36.0 - 37.3) Pulse Rate (adult) 62 bpm (60 - 100) Respiratory Rate 16 breaths/min (10 - 20) O2 Sat by Pulse Oximetry 100 % (90 - 100) Blood Pressure 120/62 mm Hg Height 6 ft 6 in Weight 165 lb Body Mass Index 19.0 kg/m^2 Results Name: YURIY BEE Unit #: [id number] : 1985 Sex: M Loc / Svc: ED DOS: 07/15/14 Signed Report #: [id number] DIAGNOSTIC IMAGING REPORT TYPE OF EXAM: CHEST, [...] Encounters Encounter Location Date/Time Registered Emergency Room [facility] 08/27/14 9:42pm Departed Emergency Room [facility] 07/15/14 2:54am Recent Diagnosis
--- OUTSIDE RECORDS SUMMARY | 2017-04-22 01:40 | XMS REPORT | Continuity of Care Document ---
Author Author [facility] Organization [facility] Address Unknown Phone Unavailable Support Name Relationship Address Phone VERONICAKYA NUNES Carmelo Caregiver [address] [place] [address] DANIE SPENCE DO Caregiver [facility] [address] [place] [address] KALEY BEE Next Of Kin [address] [place] [address] Insurance Providers Payer Name Policy Number Subscriber Name Relationship [facility] [id number] Yuriy Bee 20 Self Advance Directives Directive [...] F (96.8 - 99.1) Temperature (Calculated Celsius) [phone] degrees C (36.0 - 37.3) Pulse Rate [...] Has specimen been collected/obtained? Y Urine Specific [place] December 28, 2014 10:31am 1.025 - Has [...] N 4.5-11.0 Name: YURIY BEE Unit #: [id number] : [id number] Sex: M Loc / Svc: ED DOS: 12/28/14 Signed Report #: [id number] DIAGNOSTIC IMAGING REPORT TYPE OF EXAM: CT [...] Encounters Encounter Location Date/Time Departed Emergency Room [facility] 12/28/14 10:13am Departed Emergency Room [facility] 12/05/14 7:40pm Recent Diagnosis
--- OUTSIDE RECORDS SUMMARY | 2017-04-22 01:40 | XMS REPORT | Continuity of Care Document ---
Author Author [facility] Organization [facility] Address Unknown Phone Unavailable Support Name Relationship Address Phone DARNELL BARRON MD Caregiver [address] [place] [address] [place] [phone] KALEY BEE Next Of Kin [address] [place] [address] Insurance Providers Payer Name Policy Number Subscriber Name Relationship [facility] [id number] Magdaleno Bee 20 Self Problems Medical Problems [...] Encounters Encounter Location Date/Time Departed Emergency Room [facility] 12/05/14 7:40pm Recent Diagnosis
--- OUTSIDE RECORDS SUMMARY | 2017-04-22 01:40 | XMS REPORT | Continuity of Care Document ---
Author Author [facility] Organization [facility] Address Unknown Phone Unavailable Allergies Active [...] Status Pt. Type Provider Facility Loc./Unit Complaint [id number] 12/31/2013 20:49:00 2013 11:56:00 DIS Outpatient Koffi Hernadez Jr, MD [facility] F8SE [id number] 09/04/2012 13:59:00 2011 18:55:00 DIS Emergency Sukhwinedr Sharma MD [facility] FERM
--- OUTSIDE RECORDS SUMMARY | 2017-04-22 01:40 | XMS REPORT ---
Author Author [facility] Address Unknown Phone Unavailable Care Team Providers Care Head Housekeeper Name Role Phone Dr. ARNOL DUCKWORTH Primary [...]
--- OUTSIDE RECORDS SUMMARY | 2017-04-22 01:40 | XMS REPORT ---
Author Author [facility] Address Unknown Phone Unavailable Care Team Providers Care Project Manager Retail Name Role Phone Dr. ARNOL DUCKWORTH Primary [...]
--- OUTSIDE RECORDS SUMMARY | 2017-04-22 01:40 | XMS REPORT ---
Author Author [facility] Address Unknown Phone Unavailable Care Team Providers Care Supervisor Coal Handling Name Role Phone Dr. JAMAR VELAZQUEZ Primary [...]
--- NOTE | 2017-04-22 01:41 | ERPDOC ---
Departure Disposition Decision Date: April 22, 2017 Disposition Decision Time: 01:50 Disposition: DISCHARGED HOME, SELF-CARE Impression Impression Impression: Primary Impression: Convulsion, non-epileptic Convulsion type: unspecified Qualified Codes: R56.9 - Unspecified convulsions Severity: Mild Condition: Improved Seen By: Physician only Referrals: KYA MARTIN (Family) Patient Instructions: Nonepileptic Seizures (ED) Problems/Meds/Labs Reviewed?: Yes Medications reviewed and manag: Yes Additional Instructions: Zoloft 50 mg one tablet daily Follow up with your doctor sometime in the next 2-3 weeks for recheck Follow up care ordered?: Yes Mental Status: Alert Scripts Sertraline (Zoloft) 50 Mg Tablet 50 MG PO DAILY, #30 TAB Prov: BUCK YODER MD 04/22/17 HPI - CVA/Neuro General Chief Complaint: Seizure Stated Complaint: SEIZURES Time Seen by Provider: 01:34 Source: patient, EMS Exam Limitations: no limitations HPI - CVA/NEURO Initial Comments Pt has multiple 1 min long convulsions at home tonight form [id number]. When EMS arrived convulsions stopped and pt was alert and oriented within 5 minutes. Same as multiple prior episodes of stress induced convulsions. Pt admits he is quite stressed and has been drinking tonight. Occurred At: home Onset/Timing: Rapid Associated Symptoms: seizures, DENIES: confusion, fatigue, fever/chills, insomnia, loss of consciousness, muscle spasms, nausea/vomiting, numbness in legs/feet, paresthesia, ringing in ears, sleepy, slurred speech, tingling in legs/feet, trouble walking, vision changes, weakness Hx of Similar Symptoms: Yes Modifying Factors: Stress Allergies: Coded Allergies: sulfamethoxazole (Verified Allergy, Unknown, 04/09/17) trimethoprim (Verified Allergy, Unknown, 04/09/17) Past History Patient Medical History Problem List Updates: Stress-induced convulsions Past Medical History Neurological: seizures (pseudoseizures) Surgical History General: hernia Joint: knee, shoulder Family History Family PMH: FOUND: other Vaccines Hx Influenza Vaccination: No Hx Pneumococcal Vaccination: No Social History # of Packs/Tins per Day: 1 Substance Use Type: does not use Alcohol Intake: none Sexuality: female partner Review of Systems Constitutional Constitutional: DENIES: appetite decrease, appetite increase, chills, dizziness , weakness ENMT Ears: DENIES: pain Hearing: DENIES: hearing loss, tinnitus Balance: DENIES: vertigo Mouth/Throat: DENIES: change in swallowing, change in voice, hoarsness, painful swallowing, sore throat Cardiovascular Cardiac: DENIES: chest pain, dyspnea on exertion Rhythm/Rate: DENIES: irregular beat, palpitations, tachycardia Vascular: DENIES: pedal edema Pulmonary Respiratory: DENIES: cough, dyspnea, pleuritic chest pain GI Upper Abdomen: DENIES: dysphagia, heartburn/indigestion, nausea, pain, vomiting Lower Abdomen: DENIES: blood in stool, constipation, diarrhea, pain General: DENIES: burning, dysuria, frequency, pain, urgency Musculoskeletal General: DENIES: cramps, joint pain, joint swelling, pain, weakness Integumentary Skin: DENIES: rash, sores Neurological General: seizures, DENIES: headache, numbness, tingling, vertigo, weakness Physical Exam General General Nourishment: well nourished, well developed, appears stated age, no acute distress, thin General Body Habitus: well groomed Vitals and Pain Weight: Kilograms: Height (feet): 6 Height (inches): 5.00 Triage Pain Scale: RN VS reviewed by Provider: Yes Normal Exams: Head: Normocephalic w/o trauma Eyes: Pupils are PERRLA w/ EOMI, No scleral icterus, irritation, or foreign bodies noted ENMT: No facial trauma, nasal exudates, pharyngeal erythema, or exudates are noted Neck: Full range of motion, without adenopathy, JVD, bruits or thyromegaly Chest/Resp: Clear all pan, with good airflow, and symmetry bilaterally CV: Regular rate and rhythm, without murmur or gallop, Pulses 2+ all extremities, capillary refill, <2 seconds all ext., no pedal edema noted Abdomen: Bowel sounds positive, soft, non-tender, non-distended, no hepatosplenomegaly, masses or bruits noted Lymphatic: No lymphadenopathy, or lymphedema noted Musculoskeletal: No tenderness, or deformity noted, good range of motion, all extremities Integumentary: No rashes, hives, or bruising noted, hair and nails, without abnormality Neurologic: Patient is alert, and oriented, cranial nerves, motor/sensory/ cerebellar, exams w/o gross deficits, to observation Psychiatric: Patient exhibits, appropriate attention, emotion and affect Progress Progress Progress Patient declines any intervention at this point. Patient has no history of epilepsy, has not been on seizure medications in the past. I did discuss at length the patient's stressors, and he thinks getting back on his Zoloft dose as he was before would be helpful. Patient was given Zoloft prescription, but declines taking a dose tonight. BUCK YODER MD April 22, 2017 01:41
[2017-04-22] MEDS ORDERED: SERT50TA PO (01:54)
--- NOTE | 2017-04-22 02:04 | NUR ---
INSTRUCTIONS DISMISSAL INSTRUCTIONS GIVEN TO PT VERBALIZED UNDERSTANDING
--- NOTE | 2017-04-22 02:04 | NUR ---
RX RX GIVEN FOR ZOLOFT WITH INSTRUCTIONS
--- NOTE | 2017-04-22 02:05 | NUR ---
DISMISS PT DISMISSED AMBULATORY WITH ADULT FEMALE
[2017-04-22 08:38] VITALS: BP 108/58; PULSE 74; RESP 14; TEMP 97.9; O2SAT 96
== END 2017-04-22 02:05 | disposition home or self-care (01) ==
LOC: ED 01:30
DX: R56.9 Unspecified convulsions (principal)